=== PATIENT | male | born 1975 | race African-American/Black ===

== ENCOUNTER 2018-11-26 13:05 | Emergency (ER) | payer OTHER ==
[~2018-11-26] VITALS: Ht 167.6 cm; Wt 88.6 kg
[2018-11-26] MEDS ORDERED: MICA40TA PO (13:55)
[2018-11-26 14:32] LABS: BASO % 0.4 % (0.0-1.0); EOS # 0.2 10^3/uL (0.0-0.50); EOS % 2.7 % (0.0-3.0); HEMATOCRIT 44.7 % (42.0-52.0); HEMOGLOBIN 15.5 g/dl (13.5-17.5); LYMPH # 1.4 10^3/uL (1.5-4.5); LYMPH % 19.7 % (24.0-44.0); MEAN CORPUSCULAR HEMOGLOBIN 29.4 pg (27.0-33.0); MEAN CORPUSCULAR HGB CONC 34.7 g/dl (32.0-36.5); MEAN CORPUSCULAR VOLUME 84.8 fl (80.0-96.0); MONO # 0.3 10^3/uL (0.0-0.8); MONO % 4.8 % (0.0-5.0); NEUTROPHILS % 72.3 % (36.0-66.0); PLATELET COUNT, AUTOMATED 183 10^3/uL (150-450); RED BLOOD COUNT 5.27 10^6/uL (4.30-6.10); WHITE BLOOD COUNT 6.9 10^3/uL (4.0-10.0)
[2018-11-26 14:36] LABS: BLOOD UREA NITROGEN 12 MG/DL (7-18); CARBON DIOXIDE LEVEL 23 MEQ/L (21-32); CHLORIDE LEVEL 108 MEQ/L (98-107); CREATININE FOR GFR 1.16 MG/DL (0.70-1.30); GLOMERULAR FILTRATION RATE > 60.0 (>60); GLUCOSE, FASTING 144 MG/DL (70-100); POTASSIUM SERUM 3.7 MEQ/L (3.5-5.1); SODIUM LEVEL 139 MEQ/L (136-145)
[2018-11-26] MEDS ORDERED: ISOVUE-370 76% 100ML VIAL (Q9967) As Ordered ONE (14:42)
--- NOTE | 2018-11-26 16:15 | REP ---
HISTORY: Possible perirectal abscess. CT examination of the pelvis only was obtained after intravenous contrast administration. No oral bowel preparatory contrast or rectal contrast was administered. There are no priors for comparison. The patient states she has had a prior in [place] at [facility], however, due to the request for emergent interpretation of this examination, an emergent report is being made. The pelvic bowel loops are unremarkable. There is no free fluid or free air. There is no pelvic mass or adenopathy. There is no CT evidence of an abscess. Bone window technique throughout the examination shows no abnormality in the osseous structures. IMPRESSION: No abnormality noted. Electronically Signed by John Bailey DO 11/26/2018 04:32 P
[2018-11-26] MEDS ORDERED: COLA100C5 PO (16:22)
[2018-11-26] MEDS ORDERED: ANUS25SU PR (16:22)
[2018-11-26 16:45] VITALS: BP 118/72
--- NOTE | 2018-11-26 20:18 | ECGEPIP ---
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
== END 2018-11-26 17:02 | disposition home or self-care (01) ==
LOC: M ED 13:05 → EDBD 13:05 → M ED 17:02
DX: K60.3 Anal fistula (principal); R55 Syncope and collapse
CPT/HCPCS: 36415; 72193; 80048; 85025; 93005; 99284; Q9967

== ENCOUNTER 2019-01-26 00:25 | Observation (INO) | payer OTHER ==
[~2019-01-26] VITALS: Ht 167.6 cm; Wt 92.1 kg
[~2019-01-26 00:25] MED LIST: ANUS25SU PR; COLA100C5 PO; MICA40TA PO
[2019-01-26 00:59] LABS: BASO % 0.6 % (0.0-1.0); EOS # 0.2 10^3/uL (0.0-0.5); EOS % 3.2 % (0.0-3.0); HEMATOCRIT 42.9 % (42.0-52.0); HEMOGLOBIN 14.9 g/dl (13.5-17.5); LYMPH # 2.5 10^3/uL (1.5-5.0); LYMPH % 39.7 % (24.0-44.0); MEAN CORPUSCULAR HEMOGLOBIN 30.2 pg (27.0-33.0); MEAN CORPUSCULAR HGB CONC 34.7 g/dl (32.0-36.5); MEAN CORPUSCULAR VOLUME 86.8 fl (80.0-96.0); MONO # 0.6 10^3/uL (0.0-0.8); MONO % 8.7 % (0.0-5.0); NEUTROPHILS % 47.6 % (36.0-66.0); PLATELET COUNT, AUTOMATED 202 10^3/uL (150-450); RED BLOOD COUNT 4.94 10^6/uL (4.30-6.10); WHITE BLOOD COUNT 6.3 10^3/uL (4.0-10.0)
[2019-01-26] MEDS ORDERED: LABETALOL HCL 100 MG/20 ML VIAL IV STA (01:07)
--- NOTE | 2019-01-26 01:22 | REPVR ---
PROCEDURE INFORMATION: Exam: CT Head Without Contrast Exam date and time: 01/26/2019 12:35 AM Clinical history: 43 years old, male; Altered mental status/memory loss; Additional info: CVA - nursing interventions must not delay CT TECHNIQUE: Imaging protocol: Computed tomography of the head without contrast. Radiation optimization: All CT scans at this facility use at least one of these dose optimization techniques: automated exposure control; mA and/or kV adjustment per patient size (includes targeted exams where dose is matched to clinical indication); or iterative reconstruction. COMPARISON: No relevant prior studies available. FINDINGS: Brain: Normal. No hemorrhage. Unremarkable white matter. No mass effect. Ventricles: Normal. No ventriculomegaly. Bones/joints: Unremarkable. No acute fracture. Sinuses: Visualized sinuses are unremarkable. No fluid levels. Mastoid air cells: Visualized mastoid air cells are well aerated. Soft tissues: Unremarkable. IMPRESSION: No acute intracranial abnormality. Electronically signed by: Noah Blanco On 01/26/2019 01:21:18 AM
[2019-01-26 01:23] LABS: BLOOD UREA NITROGEN 19 MG/DL (7-18); CALCIUM LEVEL 8.8 MG/DL (8.5-10.1); CARBON DIOXIDE LEVEL 28 MEQ/L (21-32); CHLORIDE LEVEL 107 MEQ/L (98-107); CK-MB VALUE MASS 6.7 NG/ML (<3.6); CPK CREATINE PHOSPHOKINASE 637 U/L (39-308); GLOMERULAR FILTRATION RATE > 60.0 (>60); GLUCOSE, FASTING 100 MG/DL (70-100); INR 1.14; MB/CK RELATIVE INDEX 1.05 (< OR =4); PARTIAL THROMBOPLASTIN TIME 26.5 SECONDS (25.0-38.4); POTASSIUM SERUM 3.9 MEQ/L (3.5-5.1); PROTHROMBIN TIME 14.3 SECONDS (11.8-14.0); SODIUM LEVEL 138 MEQ/L (136-145); TROPONIN I 0.05 NG/ML (< 0.10)
[2019-01-26 01:31] LABS: AMPHETAMINES LEVEL URINE NEGATIVE (NEGATIVE); BARBITURATES URINE NEGATIVE (NEGATIVE); BENZODIAZEPINES URINE NEGATIVE (NEGATIVE); CANNABINOIDS URINE NEGATIVE (NEGATIVE); COCAINE METABOLITE URINE NEGATIVE (NEGATIVE); METHADONE URINE NEGATIVE (NEGATIVE); OPIATES URINE NEGATIVE (NEGATIVE); PHENCYCLIDINE URINE NEGATIVE (NEGATIVE)
[2019-01-26] MEDS ORDERED: ASPIRIN 325 MG TAB PO ONE (02:00)
[2019-01-26] MEDS ORDERED: VITMTA PO (02:23)
[2019-01-26] MEDS ORDERED: MICA40TA2 PO (02:23)
[2019-01-26] MEDS ORDERED: ACETAMINOPHEN TAB 650MG DOSE (2X325MG) PO PRN (02:45)
[2019-01-26] MEDS ORDERED: MAALOX 30 ML SUSP *UDC PO PRN (02:45)
--- NOTE | 2019-01-26 03:05 | HPEPDOC ---
General Date of Admission 01/26/19 Date of Service: Jan 26, 2019 Chief Complaint The patient is a 43-year-old male admitted with a reason for visit of Neuro Symptoms. Source: Patient Exam Limitations: No limitations Timing/Duration: Other Severity: Moderate Associated Symptoms: Other (temporary memory loss) History of Present Illness This is 43 years old male with past medical history of hypertension and hyperlipidemia developed sudden onset of difficulty with memory starting hour a nd a half prior to presentation to triage. As per , patient was confused and dazed looking did not remember the events of night sweats and he was unable to state place and person and time. During my interview, patient is awake, alert, oriented 3, in no apparent distress. Offers no new complaints including headache, dizziness sensory or motor deficit. Were asked by ED to admit patient with global transient amnesia Home Medications Scheduled Multivitamins (Thera M Plus Tablet) 1 Each Tablet, 1 TAB PO DAILY, (Reported) Telmisartan/Hydrochlorothiazid (Micardis Hct 40-12.5 mg Tablet) 1 Each Tablet, 1 TAB PO DAILY, (Reported) Allergies Coded Allergies: No Known Allergies (Unverified , 11/26/18) Past Medical History Medical History Hypertension and hyperlipidemia Surgical History two hernia repairs 1. Inguinal 1. Abdominal Social History * Smoker: former Smoker, quit greater than 1 year Alcohol: Denies Drugs: denies A-FIB/CHADSVASC A-FIB History Current/History of A-Fib/PAF?: No Review of Systems Constitutional: Denies: Chills, Fever, Malaise, Night Sweats, Weakness, Fatigue, Weight Loss, Lethargy, Other Eyes: Denies: Pain, Vision change, Conjunctivae inflammation, Eyelid inflammation, Redness, Other ENT: Denies: Head Aches, Ear Pain, Dysphagia, Sinus Congestion, Post Nasal Drip, Sore Throat, Epistaxis, Other Symptoms Skin: Denies: Rash, Lesions, Jaundice, Bruising, Itching, Dry, Breakdown, Nail Changes, Other Pulmonary: Denies: Dyspnea, Cough, Pleuritic Chest Pain, Other Symptoms Cardiovascular: Denies: Chest Pain, Palpitations, Orthopnea, Paroxysmal Noc. Dyspnea, Edema, Lt Headedness, Other Symptoms Gastrointestinal: Denies: Nausea, Vomiting, Abdominal Pain, Diarrhea, Constipation, Melena, Hematochezia, Other Symptoms Genitourinary: Denies: Dysuria, Frequency, Incontinence, Hematuria, Retention, Other Symptoms Hematologic: Denies: Bruising, Bleeding Excessively, Petecchia, Purpura, Enlarged Lymph Nodes, Other Hematologic Endocrine: Denies: Polydipsia, Polyphagia, Polyuria, Heat Intolerance, Cold Intolerance, Other Endocrine Sx Musculoskeletal: Denies: Neck Pain, Back Pain, Shoulder Pain, Arm Pain, Hand Pain, Leg Pain, Foot Pain, Joint Pain, Muscle Pain, Spasms, Other Symptoms Neurological: Reports: Other Symptoms (, positive amnesia) Psych: Denies: Mood Normal, Anxiety, Depression, Memory Issues, Thoughts of Self Harm, Anger, Thoughts of Harming Other, Other Psych Physical Examination General Exam: Positive: Alert, Cooperative Eye Exam: Positive: Conjunctiva & lids normal ENT Exam: Positive: Atraumatic, Mucous membr. moist/pink Neck Exam: Positive: Supple Chest Exam: Positive: Clear to auscultation, Normal air movement Heart Exam: Positive: Rate Normal, Normal S1, Normal S2 Abdomen Exam: Positive: Normal bowel sounds, Soft Extremity Exam: Positive: Normal pulses Skin Exam: Positive: Nl turgor and temperature Neuro Exam: Positive: Normal Speech, Strength at 5/5 X4 ext, Sensation Intact, Cranial Nerves 3-12 NL Psych Exam: Positive: Mental status NL, Mood NL, Oriented x 3 Vital Signs Vital Signs Date Time Temp Pulse Resp B/P (MAP) Pulse Ox O2 Delivery O2 Flow Rate FiO2 01/26/19 02:21 65 14 159/106 (123) 97 01/26/19 00:25 97.1 Room Air Laboratory Data Labs 24H Laboratory Tests 2 01/26/19 00:49: Immature Granulocyte % (Auto) 0.2, Neutrophils (%) (Auto) 47.6, Lymphocytes (%) (Auto) 39.7, Monocytes (%) (Auto) 8.7H, Eosinophils (%) (Auto) 3.2H, Basophils (%) (Auto) 0.6, Neutrophils # (Auto) 3.0, Lymphocytes # (Auto) 2.5, Monocytes # (Auto) 0.6, Eosinophils # (Auto) 0.2, Basophils # (Auto) 0.0, Nucleated Red Blood Cells % (auto) 0.0, Prothrombin Time 14.3H, Prothromb Time International Ratio 1.14, Activated Partial Thromboplast Time 26.5, Urine Color YELLOW, Urine Appearance CLEAR, Urine pH 6.0, Urine Specific [place] 1.014, Urine Protein NEGATIVE, Urine Glucose (UA) NEGATIVE, Urine Ketones NEGATIVE, Urine Blood NEGATIVE, Urine Nitrite NEGATIVE, Urine Bilirubin NEGATIVE, Urine Urobilinogen 0.2, Urine Leukocyte Esterase NEGATIVE, Urine WBC (Auto) 1, Urine RBC (Auto) 1, Urine Hyaline Casts (Auto) 0, Urine Bacteria (Auto) NEGATIVE, Urine Squamous Epithelial Cells 0, Urine Sperm (Auto) SMALLH, Anion Gap 3L, Glomerular Filtration Rate > 60.0, Calcium Level 8.8, Total Creatine Kinase 637H, Creatine Kinase MB 6.7H, Creatine Kinase MB Relative Index 1.05, Troponin I 0.05, Urine Opiates Screen NEGATIVE, Urine Methadone Screen NEGATIVE, Urine Barbiturates S creen NEGATIVE, Urine Phencyclidine Screen NEGATIVE, Urine Amphetamines Screen NEGATIVE, Urine Benzodiazepines Screen NEGATIVE, Urine Cocaine Metabolite Screen NEGATIVE, Urine Cannabinoids Screen NEGATIVE CBC/BMP Laboratory Tests 01/26/19 00:49 Problems (1) Transient global amnesia Status: Acute Problem Text: Admit patient to PCU hospital monitor CT head of is essentially negative All laboratory work up is completely negative MRI of brain and MRA of carotids has been ordered, not any new to pathology Patient is probably going to require neurology follow-up as an outpatient DC once the workup is complete and negative (2) Hypertensive urgency Status: Acute Problem Text: Patient has a history of hypertension, but he is on no hypert ensive meds will start him on metoprolol 25 mg by mouth twice a day Adjust dose as per response to medication Telemetry monitoring Plan / VTE VTE Prophylaxis Ordered?: Yes AMAN KENDALL MD Jan 26, 2019 03:04
--- NOTE | 2019-01-26 03:29 | REP ---
Clinical: Acute cerebrovascular accident . Comparison: None . Findings: The mediastinum and cardiac silhouette are stable and within normal limits for portable technique. The lung [place] are clear without acute consolidation, effusion, or pneumothorax. Skeletal structures are intact. Impression: No acute cardiopulmonary process appreciated. Electronically Signed by Kian Pimentel MD 01/26/2019 03:21 A
--- NOTE | 2019-01-26 04:14 | REPVR ---
PROCEDURE INFORMATION: Exam: MR Head Without Contrast Exam date and time: 01/26/2019 3:26 AM Clinical history: 43 years old, male; Altered mental status/memory loss; Patient HX: Sudden onset of foggy memory, confusion that comes and goes nki, no priors; Additional info: CVA TECHNIQUE: Imaging protocol: MR of the head without contrast. COMPARISON: CT Head without contrast 01/26/2019 12:53 AM FINDINGS: Ventricles demonstrate normal size and configuration. Major vascular flow voids at the skull base are preserved. No extra-axial fluid collection. No midline shift or intracranial mass effect. Minimal nonspecific white matter gliosis, probable chronic microvascular angiopathy. No pathologic susceptibility. No cerebral edema. No diffusion restriction. Visualized paranasal sinuses and mastoid air cells are clear. IMPRESSION: No acute intracranial abnormality. Electronically signed by: Ortega Steward On 01/26/2019 04:14:17 AM
--- NOTE | 2019-01-26 04:16 | REPVR ---
PROCEDURE INFORMATION: Exam: MR Angiogram Head Without Contrast, Arteries Exam date and time: 01/26/2019 3:26 AM Clinical history: 43 years old, male; Memory loss; Type not specified; Patient HX: Sudden onset of foggy memory, confusion that comes and goes nki, no priors; Additional info: CVA TECHNIQUE: Imaging protocol: MR angiogram head without contrast. Exam focused on the arteries. 3D rendering: MIP reconstructed images were created and reviewed. COMPARISON: CT Head without contrast 01/26/2019 12:53 AM FINDINGS: Right internal carotid artery: Unremarkable. Intracranial segment is patent with no significant stenosis. No aneurysm. Right anterior cerebral artery: Unremarkable. No occlusion or significant stenosis. No aneurysm. Right middle cerebral artery: Unremarkable. No occlusion or significant stenosis. No aneurysm. Right posterior cerebral artery: Unremarkable. No occlusion or significant stenosis. No aneurysm. Right vertebral artery: Unremarkable. No occlusion or significant stenosis. No aneurysm. Left internal carotid artery: Unremarkable. Intracranial segment is patent with no significant stenosis. No aneurysm. Left anterior cerebral artery: Hypoplastic left A1 segment. Left middle cerebral artery: Unremarkable. No occlusion or significant stenosis. No aneurysm. Left posterior cerebral artery: Patent left posterior communicating artery with hypoplastic left P1 segment. Left vertebral artery: Left vertebral artery is dominant. Basilar artery: Unremarkable. No occlusion or significant stenosis. No aneurysm. IMPRESSION: Unremarkable MRA of the [place]. Electronically signed by: Ortega Steward On 01/26/2019 04:16:47 AM
[2019-01-26 04:55] VITALS: BP 160/110
--- NOTE | 2019-01-26 05:36 | ECGEPIP ---
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
[2019-01-26 08:00] VITALS: BP 135/89
[2019-01-26] MEDS: ENOXAPARIN 40 MG/0.4 ML SYRINGE (J1650) SC SCH (08:48)
[2019-01-26] MEDS: METOPROLOL SUCC *XL* 25MG TAB (TopROL *XL*) PO SCH ×2 (08:48→20:52)
[2019-01-26 10:03] LABS: CHOLESTEROL LEVEL 241 MG/DL (<200); CHOLESTEROL RISK RATIO 5.355 (<5); HDL CHOLESTEROL 45 MG/DL (>40); LDL CHOLESTEROL 140 MG/DL (<100); NON-HDL-C 196 MG/DL; TRIGLYCERIDES LEVEL 282 MG/DL (<150)
[2019-01-26 12:00] VITALS: BP 137/80
[2019-01-26 16:00] VITALS: BP 129/79
--- NOTE | 2019-01-26 16:16 | REP ---
Extracranial MRA: 01/26/2019. Indication: Stroke. Comparison: None. Technique: 3-D [id number] imaging of the extracranial circulation was performed including 3-D mrfq-tu-ltxutd contrast enhanced images. 25 ml IV ProHance were administered. Findings: The great vessels originate in the expected anatomic fashion from the aortic arch. There is no hemodynamically significant extracranial ICA stenosis by NASCET criteria. The vertebral arteries are patent throughout. No common carotid artery abnormalities are present. Impression: Unremarkable extracranial MRA. Electronically Signed by Fransisco Puentes DO 01/26/2019 04:07 P
--- NOTE | 2019-01-26 17:15 | IPNPDOC ---
Text Note Date of Service The patient was seen on 01/26/19. NOTE SUBJECTIVE: The patient states he is starting to remember things from prior to coming to the emergency room. He has not had difficulty with remembering anything that has happened since his arrival to the emergency room. The patient has had an episode of transient global amnesia. OBJECTIVE: Please see vital signs below Physical exam: HENT: Neck is supple with no adenopathy or thyromegaly, he has no scleral icterus or injection, has good dentition, oral mucosa is moist Cardiovascular: Regular rate and rhythm with a normal S1 and S2 and no appreciable murmur. Respiratory: Clear to auscultation with good air movement Abdomen: Soft, nontender, nondistended, mild central obesity. Extremities: No peripheral edema or lesions, pedal pulses are palpable. Neuro: No focal neuromotor deficit, patient does not exhibit tremor, patient can recall items such as the access code to his phone, but cannot recall his 's phone number or his house number. He cannot recall names of some friends and family members. He does recall his date. IMAGING: Brain MRI FINDINGS: Ventricles demonstrate normal size and configuration. Major vascular flow voids at the skull base are preserved. No extra-axial fluid collection. No midline shift or intracranial mass effect. Minimal nonspecific white matter gliosis, probable chronic microvascular angiopathy. No pathologic susceptibility. No cerebral edema. No diffusion restriction. Visualized paranasal sinuses and mastoid air cells are clear. IMPRESSION: No acute intracranial abnormality. Electronically signed by: Ortega Steward On 01/26/2019 04:14:17 AM Brain MRA FINDINGS: Right internal carotid artery: Unremarkable. Intracranial segment is patent with no significant stenosis. No aneurysm. Right anterior cerebral artery: Unremarkable. No occlusion or significant stenosis. No aneurysm. Right middle cerebral artery: Unremarkable. No occlusion or significant stenosis. No aneurysm. Right posterior cerebral artery: Unremarkable. No occlusion or significant stenosis. No aneurysm. Right vertebral artery: Unremarkable. No occlusion or significant stenosis. No aneurysm. Left internal carotid artery: Unremarkable. Intracranial segment is patent with no significant stenosis. No aneurysm. Left anterior cerebral artery: Hypoplastic left A1 segment. Left middle cerebral artery: Unremarkable. No occlusion or significant stenosis. No aneurysm. Left posterior cerebral artery: Patent left posterior communicating artery with hypoplastic left P1 segment. Left vertebral artery: Left vertebral artery is dominant. Basilar artery: Unremarkable. No occlusion or significant stenosis. No aneurysm. IMPRESSION: Unremarkable MRA of the [place]. Electronically signed by: Ortega Nichelle On 01/26/2019 04:16:47 AM Carotid artery MRI Findings: The great vessels originate in the expected anatomic fashion from the aortic arch. There is no hemodynamically significant extracranial ICA stenosis by NASCET criteria. The vertebral arteries are patent throughout. No common carotid artery abnormalities are present. Impression: Unremarkable extracranial MRA. Electronically Signed by Fransisco Puentes DO 01/26/2019 04:07 P ASSESSMENT/PLAN: 1. Transient global amnesia. Studies inclusive of head CT, MRI and MRA of brain, MRA of carotids are all negative for infarct, stenosis or occlusion. The patient's symptoms of transient global amnesia are improving. We will continue to assess him overnight. Patient will require neurology follow-up as an outpatient. 2. Hypertensive urgency. Systolic blood pressures had been as high as 207 on presentation. The patient did receive a dose of labetalol in the emergency room. His systolic blood pressures have done a slow downward drift and now range 129 to135. His acute hypertension may have been the etiology of his event. He is currently maintained on Toprol-XL for blood pressure control. VS,Fishbone, I+O VS, Fishbone, I+O Laboratory Tests 01/26/19 00:49 Vital Signs Date Time Temp Pulse Resp B/P (MAP) Pulse Ox O2 Delivery O2 Flow Rate FiO2 01/26/19 16:00 97.3 69 18 129/79 (96) 97 01/26/19 00:25 Room Air I&O- Last 24 Hours up to 6 AM 01/26/19 06:00 Intake Total 300 ml Balance 300 ml NORM DAWKINS MD Jan 26, 2019 17:15
[2019-01-26 20:00] VITALS: BP 128/70
[2019-01-26] MEDS ORDERED: ATORVASTATIN 20 MG TAB PO SCH (21:00)
[2019-01-27] VITALS: BP 133/72
[2019-01-27 04:00] VITALS: BP 133/76
[2019-01-27 07:40] LABS: HEMATOCRIT 43.6 % (42.0-52.0); HEMOGLOBIN 14.9 g/dl (13.5-17.5); MEAN CORPUSCULAR HEMOGLOBIN 30.2 pg (27.0-33.0); MEAN CORPUSCULAR HGB CONC 34.2 g/dl (32.0-36.5); MEAN CORPUSCULAR VOLUME 88.4 fl (80.0-96.0); PLATELET COUNT, AUTOMATED 191 10^3/uL (150-450); RED BLOOD COUNT 4.93 10^6/uL (4.30-6.10); WHITE BLOOD COUNT 4.8 10^3/uL (4.0-10.0)
[2019-01-27 07:52] VITALS: BP 157/93
[2019-01-27 08:01] LABS: ALBUMIN 3.5 GM/DL (3.2-5.2); ALT/SGPT 39 U/L (12-78); BILIRUBIN,TOTAL 0.3 MG/DL (0.2-1.0); BLOOD UREA NITROGEN 17 MG/DL (7-18); CALCIUM LEVEL 8.9 MG/DL (8.5-10.1); CARBON DIOXIDE LEVEL 28 MEQ/L (21-32); CHLORIDE LEVEL 107 MEQ/L (98-107); CREATININE FOR GFR 1.17 MG/DL (0.70-1.30); GLOMERULAR FILTRATION RATE > 60.0 (>60); GLUCOSE, FASTING 98 MG/DL (70-100); POTASSIUM SERUM 3.9 MEQ/L (3.5-5.1); SODIUM LEVEL 140 MEQ/L (136-145); TOTAL PROTEIN 7.1 GM/DL (6.4-8.2)
[2019-01-27 09:36] VITALS: BP 157/93
[2019-01-27] MEDS: METOPROLOL SUCC *XL* 25MG TAB (TopROL *XL*) PO SCH (09:36)
[2019-01-27] MEDS: ENOXAPARIN 40 MG/0.4 ML SYRINGE (J1650) SC SCH (09:36)
[2019-01-27 11:31] VITALS: BP 145/83
[2019-01-27] MEDS ORDERED: METO1TAB32 PO (12:28)
[2019-01-27] MEDS ORDERED: ATOR1TAB21 PO (12:28)
[2019-01-27] MEDS ORDERED: ASPI81TA85 PO (12:28)
== END 2019-01-27 16:30 | disposition home or self-care (01) ==
LOC: M ED 00:25 → M ED INP 00:26 → M PCU 04:43
PROVIDERS: ADMIT Internal Medicine; ATTEND Internal Medicine
DX: G45.4 Transient global amnesia (principal); I16.0 Hypertensive urgency; E78.49 Other hyperlipidemia; I10 Essential (primary) hypertension; Z79.899 Other long term (current) drug therapy; Z87.891 Personal history of nicotine dependence
CPT/HCPCS: 36415; 70450; 70544; 70549; 70551; 71045; 80048; 80053; 80061; 80307; 81001; 82550; 82553; 83735; 84484; 85025; 85027; 85610; 85730; 86850; 86900; 86901; 93005; 93041; 94760; 96372; 96374; 99285; J1650

== ENCOUNTER → 2019-07-09 | Outpatient (REF) | payer OTHER ==
[~2019-07-09] MED LIST changes: +ASPI81TA85 PO; +ATOR1TAB21 PO; +METO1TAB32 PO; +MICA40TA2 PO; +VITMTA PO
== END ==
LOC: M WUC 18:37
PROVIDERS: ATTEND Physician Assistant
DX: J02.9 Acute pharyngitis, unspecified (principal)

== ENCOUNTER 2019-07-13 22:12 | Emergency (ER) | payer OTHER ==
[~2019-07-13] VITALS: Ht 180.3 cm; Wt 91.8 kg
[2019-07-13] MEDS ORDERED: METH4PACK PO (22:46)
[2019-07-13 23:08] LABS: BASO % 0.3 % (0.0-1.0); EOS # 0.1 10^3/uL (0.0-0.5); EOS % 0.5 % (0.0-3.0); HEMATOCRIT 41.9 % (42.0-52.0); LYMPH # 1.9 10^3/uL (1.5-5.0); LYMPH % 16.5 % (24.0-44.0); MEAN CORPUSCULAR HEMOGLOBIN 29.5 pg (27.0-33.0); MEAN CORPUSCULAR HGB CONC 33.4 g/dl (32.0-36.5); MEAN CORPUSCULAR VOLUME 88.2 fl (80.0-96.0); MONO # 1.1 10^3/uL (0.0-0.8); MONO % 9.5 % (0.0-5.0); NEUTROPHILS # 8.3 10^3/uL (1.5-8.5); NEUTROPHILS % 72.9 % (36.0-66.0); PLATELET COUNT, AUTOMATED 237 10^3/uL (150-450); RED BLOOD COUNT 4.75 10^6/uL (4.30-6.10); WHITE BLOOD COUNT 11.4 10^3/uL (4.0-10.0)
[2019-07-13] MEDS ORDERED: ISOVUE-370 76% 100ML VIAL As Ordered ONE (23:18)
[2019-07-13 23:26] LABS: ERYTHROCYTE SEDIMENTATION RATE 26 mm/hr (0-15)
[2019-07-13 23:31] LABS: ALBUMIN 3.4 GM/DL (3.2-5.2); ALT/SGPT 29 U/L (12-78); BILIRUBIN,DIRECT < 0.1 MG/DL (0.0-0.2); BILIRUBIN,TOTAL 0.2 MG/DL (0.2-1.0); C REACTIVE PROTEIN QUANTITATIV 0.99 MG/DL (0.00-0.30); TOTAL PROTEIN 7.2 GM/DL (6.4-8.2)
--- NOTE | 2019-07-13 23:40 | REPVR ---
PROCEDURE INFORMATION: Exam: CT Neck With Contrast Exam date and time: 07/13/2019 10:38 PM Age: 43 years old Clinical indication: Painful swallowing and other: Right side swelling; Additional info: Swelling/? Abscess TECHNIQUE: Imaging protocol: Computed tomography images of the neck with intravenous contrast. Radiation optimization: All CT scans at this facility use at least one of these dose optimization techniques: automated exposure control; mA and/or kV adjustment per patient size (includes targeted exams where dose is matched to clinical indication); or iterative reconstruction. Contrast material: ISO; Contrast volume: 75 ml; Contrast route: AC; COMPARISON: MRA CAROTID W/O FOL WITH 01/26/2019 2:36 PM FINDINGS: Nasopharynx: Unremarkable. Oropharynx: There is enlargement of the right palatine tonsil. There is poorly defined low density involving the right palatine tonsil measuring 2.1 x 1.8 centimetres. Hypopharynx: Unremarkable. Larynx: Unremarkable. Normal epiglottis. Retropharyngeal space: Unremarkable. Submandibular/Parotid glands: Normal. Glands are normal in size. Thyroid: Normal. No enlarged or calcified nodules. Lymph nodes: Unremarkable. No lymphadenopathy. Trachea: Visualized trachea is unremarkable. Lungs: Unremarkable as visualized. Bones/joints: Unremarkable. No acute fracture. Soft tissues: There is partial effacement of the pharyngeal airway. IMPRESSION: 1. Enlargement of the right palatine tonsil with poorly defined low density measuring up to 2.1 centimetres compatible with developing peritonsillar abscess. 2. Associated partial effacement of the pharyngeal airway. Electronically signed by: Ortega Steward On 07/13/2019 23:39:13 PM
[2019-07-13] MEDS ORDERED: dexameTHASONE 20MG/5ML VIAL (J1100 PER 1MG) IV ONE (23:45)
[2019-07-13] MEDS ORDERED: CLINDAMYCIN 300 MG in IV 1 EA IV ONE (23:45)
[2019-07-14] MEDS ORDERED: CLINDAMYCIN 900 MG in IV 1 EA IV ONE (00:15)
[2019-07-14 00:51] VITALS: BP 127/92
[2019-07-14] MEDS ORDERED: PRED20TA PO (01:16)
[2019-07-14] MEDS ORDERED: CLEO300C2 PO (01:16)
[2019-07-15] MEDS ORDERED: CLEO300C2 PO (02:42)
[2019-07-15] MEDS ORDERED: ASPI-161 PO (02:42)
[2019-07-15] MEDS ORDERED: ATOR1TAB21 PO (02:42)
[2019-07-15] MEDS ORDERED: PRED20TA PO (02:44)
[2019-07-15] MEDS ORDERED: IBUP1TAB7 PO (02:44)
[2019-07-15] MEDS ORDERED: ACET-907 PO (02:44)
[2019-07-15] MEDS ORDERED: METO1TAB87 PO (02:44)
== END 2019-07-14 01:42 | disposition home or self-care (01) ==
LOC: M ED 22:12
DX: J36 Peritonsillar abscess (principal); R05 Cough; I10 Essential (primary) hypertension; E78.5 Hyperlipidemia, unspecified; Z79.82 Long term (current) use of aspirin; Z79.899 Other long term (current) drug therapy
CPT/HCPCS: 70491; 80047; 80076; 83605; 85025; 85652; 86140; 86308; 96365; 96375; 99284; G0463; J1100; Q9967

== ENCOUNTER 2019-07-15 00:50 | Inpatient (IN) | payer OTHER ==
[~2019-07-15] VITALS: Ht 167.6 cm; Wt 90.1 kg
[2019-07-15] VITALS (7 sets, daily range): BP systolic 138–195; BP diastolic 80–108
[~2019-07-15 00:50] MED LIST changes: +CLEO300C2 PO; +METH4PACK PO; +PRED20TA PO
[2019-07-15] MEDS ORDERED: ISOVUE-370 76% 100ML VIAL (Q9967) As Ordered ONE (01:02)
[2019-07-15 01:16] LABS: BASO % 0.1 % (0.0-1.0); HEMOGLOBIN 14.5 g/dl (13.5-17.5); LYMPH # 1.8 10^3/uL (1.5-5.0); LYMPH % 11.3 % (24.0-44.0); MEAN CORPUSCULAR HEMOGLOBIN 29.7 pg (27.0-33.0); MEAN CORPUSCULAR HGB CONC 34.5 g/dl (32.0-36.5); MEAN CORPUSCULAR VOLUME 85.9 fl (80.0-96.0); MONO # 1.3 10^3/uL (0.0-0.8); MONO % 8.4 % (0.0-5.0); NEUTROPHILS # 12.3 10^3/uL (1.5-8.5); NEUTROPHILS % 79.8 % (36.0-66.0); PLATELET COUNT, AUTOMATED 270 10^3/uL (150-450); RED BLOOD COUNT 4.89 10^6/uL (4.30-6.10); WHITE BLOOD COUNT 15.4 10^3/uL (4.0-10.0)
--- NOTE | 2019-07-15 01:32 | REPVR ---
PROCEDURE INFORMATION: Exam: CT Neck With Contrast Exam date and time: 07/15/2019 12:55 AM Age: 43 years old Clinical indication: Painful swallowing and throat pain; Patient HX: Known abscess; Additional info: Eval abscess TECHNIQUE: Imaging protocol: Computed tomography images of the neck with intravenous contrast. Radiation optimization: All CT scans at this facility use at least one of these dose optimization techniques: automated exposure control; mA and/or kV adjustment per patient size (includes targeted exams where dose is matched to clinical indication); or iterative reconstruction. Contrast material: ISO; Contrast volume: 75 ml; Contrast route: AC; COMPARISON: CT Neck with contrast 07/13/2019 11:21 PM FINDINGS: Nasopharynx: Unremarkable. Oropharynx: Enlarged right tonsil which is increased in size since the prior study. There is slightly decreased attenuation about the periphery of the right tonsil with irregular central enhancement without a definite ring enhancement or central low attenuation. Findings suggest edema or phlegmon. There is slight induration of the peritonsillar fat. Hypopharynx: Unremarkable. Larynx: The epiglottis is normal. Retropharyngeal space: Unremarkable. Submandibular/Parotid glands: Normal. Glands are normal in size. Thyroid: Normal. No enlarged or calcified nodules. Lymph nodes: Unremarkable. No lymphadenopathy. Trachea: Visualized trachea is unremarkable. Lungs: Unremarkable as visualized. Bones/joints: Unremarkable. No acute fracture. Soft tissues: Within normal limits. IMPRESSION: Increased size of the right tonsil since 07/13/2019. There is slightly decreased attenuation about the periphery with central irregular enhancement which likely reflects edema or phlegmon. No developed abscess is seen. Electronically signed by: Etienne Pagan On 07/15/2019 01:32:16 AM
[2019-07-15 01:45] LABS: BLOOD UREA NITROGEN 21 MG/DL (7-18); CALCIUM LEVEL 9.2 MG/DL (8.5-10.1); CARBON DIOXIDE LEVEL 24 MEQ/L (21-32); CHLORIDE LEVEL 107 MEQ/L (98-107); CREATININE FOR GFR 1.22 MG/DL (0.70-1.30); GLOMERULAR FILTRATION RATE > 60.0 (>60); GLUCOSE, FASTING 146 MG/DL (70-100); POTASSIUM SERUM 3.9 MEQ/L (3.5-5.1); SODIUM LEVEL 136 MEQ/L (136-145)
[2019-07-15] MEDS ORDERED: CLINDAMYCIN 900 MG in IV 1 EA IV ONE (01:45)
[2019-07-15] MEDS ORDERED: dexameTHASONE 20MG/5ML VIAL (J1100 PER 1MG) IV ONE (02:15)
--- NOTE | 2019-07-15 02:31 | HPEPDOC ---
[facility] Medical History & Physical Date of Admission Jul 15, 2019 Date of Service: Jul 15, 2019 Attending Physician: DIAMANTE MARADIAGA MD History and Physical TIME OF SERVICE: 2:35 AM CHIEF COMPLAINT: Difficulty swallowing HISTORY OF PRESENT ILLNESS: This is a 43-year-old male who initially presented to the ER on July 12 with complaints of sore throat that [place] mono, both of which were negative. In our ER he was diagnosed with a peritonsillar abscess, started on clindamycin and prednisone and sent home with recommendations to follow-up with his PCP for possible ENT referral. On July 13 he returned because he had persistent throat pain and difficulties swallowing. He denies having any difficulties breathing. Per discussion with Dr. De La Vega repeat CT showed peritonsillar phlegmon; he ordered clindamycin steroids and IV fluids. 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 HOME MEDICATIONS: Please see below. PHYSICAL EXAMINATION: Vital Signs Date Time Temp Pulse Resp B/P (MAP) Pulse Ox O2 Delivery O2 Flow Rate FiO2 07/15/19 00:57 178/120 (139) 07/15/19 01:02 98.5 66 22 100 Room Air GEN: well-nourished / well developed/ slightly anxious INTEGUMENT: not flushed/ not jaundice HEENT: NCAT / lips acyanotic / Mallampati class III / there is right sided tonsillar swelling CVS: bradycardic w HR 47-63/NMRG/ radial pulses intact LUNGS: lungs are clear to auscultation bilaterally on room air ABDOMEN: Contour ( obese,) MSK/EXTREMITIES: range of motion intact in all 4 extremities NEURO: CN 2-12 are grossly intact / speech is not dysarthric or muffled PSYCH: alert and oriented to person place and time/ able to understand and follow all commands LABORATORY DATA: Immature Granulocyte % (Auto) 0.4, Neutrophils (%) (Auto) 79.8H, Lymphocytes (%) (Auto) 11.3L, Monocytes (%) (Auto) 8.4H, Eosinophils (%) (Auto) 0.0, Basophils (%) (Auto) 0.1, Neutrophils # (Auto) 12.3H, Lymphocytes # (Auto) 1.8, Monocytes # (Auto) 1.3H, Eosinophils # (Auto) 0.0, Basophils # (Auto) 0.0, Nucleated Red Blood Cells % (auto) 0.0, Anion Gap 5L, Glomerular Filtration Rate > 60.0, Calcium Level 9.2 IMAGING: CT of the neck " IMPRESSION: Increased size of the right tonsil since 07/13/2019. There is slightly decreased attenuation about the periphery with central irregular enhancement which likely reflects edema or phlegmon. No developed abscess is seen. " MICROBIOLOGY: 07/15/19 Blood Culture, Received Pending ASSESSMENT: Mr. Jefferson is a 43-year-old with a history of hypertension and dyslipidemia who is admitted for management of right-sided peritonsillar phlegmon. PLAN: 1. Sepsis secondary to peritonsillar phlegmon vs pharyngitis ? SIRS criteria include WBC >12 > RR 20 He has non diabetic hyperglycemia. Plan: admit to medical floor / Sepsis protocol w FSBS Q6H & lactic acid / c/w IV clindamycin & prednisone / lactate ringers @ 150ml/H /f/u blood cx / Acetaminophen PRN for fever & odynophagia / target MAP 65 to 70 / f/u Is and Os with target UOP of at least 0.5 ml/kg/H / target serum glucose 140-180 while acutely ill / the day time team may consider ENT consult 2. Bradycardia likely 2/2 Metoprolol. He denies having chest pain or dyspnea - Plan: will not order additional testing beyond EKG, bc he is asymptomatic 3. Chronic HTN - Plan: metoprolol 4. Dyslipidemia - Plan: atorvastatin / hold ASA 5. Obesity w BMI of 33.3 - Plan: f/u A1C / the pt can f/u w his or her PCP for STOP BANG questionnaire & kinesiotherapist consult / recommend cardiovascular exercise for 40 min 4-5 days a week DVT PROPHYLAXIS: SCDs DISPOSITION: home after less than 2 midnight's stay Home Medications Scheduled Aspirin (Aspirin EC) 81 Mg Tablet.dr, 81 MG PO QHS Atorvastatin Calcium (Atorvastatin Calcium) 20 Mg Tablet, 20 MG PO QHS Clindamycin Hcl (Cleocin HCl) 300 Mg Capsule, 300 MG PO Q8H Metoprolol Tartrate (Metoprolol Tartrate) 25 Mg Tablet, 25 MG PO BID Prednisone (Prednisone) 20 Mg Tablet, 60 MG PO DAILY Scheduled PRN Acetaminophen (Tylenol) 325 Mg Tablet, 650 MG PO Q4H PRN for PAIN Ibuprofen (Ibuprofen) 800 Mg Tablet, 800 MG PO TID PRN for PAIN Allergies Coded Allergies: No Known Allergies (Unverified , 11/26/18) A-FIB/CHADSVASC A-FIB History Current/History of A-Fib/PAF?: No Current PO Anticoag Therapy: DIAMANTE Dey MD Jul 15, 2019 02:31
[2019-07-15] MEDS ORDERED: CLEO300C2 PO (02:42)
[2019-07-15] MEDS ORDERED: ASPI-161 PO (02:42)
[2019-07-15] MEDS ORDERED: ATOR1TAB21 PO (02:42)
[2019-07-15] MEDS ORDERED: PRED20TA PO (02:44)
[2019-07-15] MEDS ORDERED: IBUP1TAB7 PO (02:44)
[2019-07-15] MEDS ORDERED: METO1TAB87 PO (02:44)
[2019-07-15] MEDS ORDERED: ACET-907 PO (02:44)
[2019-07-15] MEDS: LR 1,000 ML IV SCH ×2 (02:45→12:37)
[2019-07-15] MEDS ORDERED: ACETAMINOPHEN TAB 650MG DOSE (2X325MG) PO PRN (04:30)
[2019-07-15 05:40] LABS: HEMATOCRIT 40.7 % (42.0-52.0); HEMOGLOBIN 13.9 g/dl (13.5-17.5); MEAN CORPUSCULAR HEMOGLOBIN 29.7 pg (27.0-33.0); MEAN CORPUSCULAR HGB CONC 34.2 g/dl (32.0-36.5); PLATELET COUNT, AUTOMATED 251 10^3/uL (150-450); RED BLOOD COUNT 4.68 10^6/uL (4.30-6.10); WHITE BLOOD COUNT 15.8 10^3/uL (4.0-10.0)
[2019-07-15] MEDS ORDERED: amLODIPine 10 MG TAB PO ONE (05:45)
[2019-07-15 05:59] LABS: HEMOGLOBIN A1c 5.4 %
[2019-07-15 06:10] LABS: BLOOD UREA NITROGEN 19 MG/DL (7-18); CALCIUM LEVEL 8.7 MG/DL (8.5-10.1); CARBON DIOXIDE LEVEL 27 MEQ/L (21-32); CHLORIDE LEVEL 109 MEQ/L (98-107); CREATININE FOR GFR 1.09 MG/DL (0.70-1.30); GLOMERULAR FILTRATION RATE > 60.0 (>60); GLUCOSE, FASTING 137 MG/DL (70-100); POTASSIUM SERUM 4.1 MEQ/L (3.5-5.1); SODIUM LEVEL 141 MEQ/L (136-145)
[2019-07-15] MEDS: IBUPROFEN 600 MG TAB PO PRN ×2 (10:05→16:29)
[2019-07-15] MEDS: ASPIRIN 81 MG ENTERIC TAB PO SCH (10:05)
[2019-07-15] MEDS: METOPROLOL TART 25 MG TABLET PO SCH ×2 (10:05→20:28)
[2019-07-15] MEDS: CLINDAMYCIN 600 MG in IV 1 EA IV SCH ×2 (10:06→18:08)
--- NOTE | 2019-07-15 10:16 | IPNPDOC ---
Date Seen The patient was seen on 07/15/19. Progress Note SUBJECTIVE: Patient seen and examined at bedside. Patient complains of pain in throat radiating to right ear. Denies any drainage. Swallowing intact but painful per report. Otherwise, denies fever, chills, chest pain, difficulty breathing, nausea, vomiting, abdominal pain, dysuria, leg pain or swelling. OBJECTIVE PHYSICAL EXAMINATION: VITAL SIGNS: Please see below. GENERAL: well developed, well nourished male laying in bed in mild distress, pleasant on interview but clearly in some discomfort HEENT: OP with right sided erythema and edema, no exudate NECK: lymphadenopathy on right side with TTP CARDIOVASCULAR: RRR, normal S1/2, no MRG RESPIRATORY: CTA B/L, no W/R/R ABDOMINAL: Soft, nontender, nondistended EXTREMITIES: No edema, intact distal pulses SKIN: No rash or skin breakdown appreciated NEUROLOGICAL: No focal deficits, normal speech PSYCHOLOGICAL: AAO 3, appropriate LABORATORY DATA, IMAGING STUDIES, MICROBIOLOGY: Please see below. DVT prophylaxis ordered?: SCDs, low risk and laboratory ASSESSMENT AND PLAN: Mr. Jefferson is a 43-year-old with a history of hypertension and dyslipidemia who is admitted for management of right-sided peritonsillar phlegmon. Pt placed on IV clindamycin and ENT consulted for evaluation to see if any intervention is warranted. PROBLEMS: #Sepsis due to Peritonsillar phlegmon -Sepsis protocol w FSBS Q6H & lactic acid -c/w IV clindamycin & prednisone -lactate ringers @ 150ml/H -f/u blood cx -Acetaminophen PRN for fever & odynophagia -target MAP 65 to 70 -f/u Is and Os with target UOP of at least 0.5 ml/kg/H -target serum glucose 140-180 while acutely ill -ENT consult #Bradycardia likely 2/2 Metoprolol. He denies having chest pain or dyspnea - -EKG -cont. to monitor #Chronic HTN -metoprolol -Trend BP #Dyslipidemia -atorvastatin #Obesity w BMI of 32.1 -f/u A1C -the pt can f/u w his or her PCP for STOP BANG questionnaire & automatic machine attendant consult -recommend cardiovascular exercise for 40 min 4-5 days a week -lifestyle modification on discharge DVT PROPHYLAXIS: SCDs DISPOSITION: home pending ENT consult and symptomatic improvement VS, I&O, 24H, Fishbone Vital Signs/I&O Vital Signs Date Time Temp Pulse Resp B/P (MAP) Pulse Ox O2 Delivery O2 Flow Rate FiO2 07/15/19 06:10 179/108 (131) 07/15/19 06:00 98.9 58 17 96 Room Air I&O- Last 24 Hours up to 6 AM 07/15/19 06:00 Intake Total 350 ml Output Total 0 ml Balance 350 ml Laboratory Data 24H LABS Laboratory Tests 2 07/15/19 01:07: Immature Granulocyte % (Auto) 0.4, Neutrophils (%) (Auto) 79.8H, Lymphocytes (%) (Auto) 11.3L, Monocytes (%) (Auto) 8.4H, Eosinophils (%) (Auto) 0.0, Basophils (%) (Auto) 0.1, Neutrophils # (Auto) 12.3H, Lymphocytes # (Auto) 1.8, Monocytes # (Auto) 1.3H, Eosinophils # (Auto) 0.0, Basophils # (Auto) 0.0, Nucleated Red Blood Cells % (auto) 0.0, Anion Gap 5L, Glomerular Filtration Rate > 60.0, Calcium Level 9.2 07/15/19 01:08: Lactic Acid Level 1.9 07/15/19 05:27: Nucleated Red Blood Cells % (auto) 0.0, Anion Gap 5L, Glomerular Filtration Rate > 60.0, Calcium Level 8.7, Estimated Mean Plasma Glucose 108, Hemoglobin A1c 5.4 CBC/BMP Laboratory Tests 07/15/19 01:07 07/15/19 05:27 Microbiology Microbiology 07/15/19 Blood Culture, Received Pending SCOTTIE CORTEZ MD Jul 15, 2019 10:16
--- NOTE | 2019-07-15 11:08 | IPNPDOC ---
Text Note Date of Service The patient was seen on 07/15/19. 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 Bruxism PE somewhat anxious appearing OC/OP Thre right tonsis is NOT shifted and the uvuala though mildly edematous is midline There is an exudate on medial surface of the right tonsil Neck no masses are palpated He has 4 + trigger points on right lateral pterygoid muscle and upper sternomastoid muscle and posteriro capsule of right TMJ CT reviewed IMP 1) Acute right tonsillits and pharyngiits without evidence of abscess responding to meds 2) Ear pain can be both referred pain from pharyngeal inflammation but he clearly has myofascial dysfunciton from a bite disordeer For this I woulld recommend heating pad to right face, soft diet, pain meds and have him get his dental nightguard splint Thank you Gerardo STERN, I+O Gerardo STERN I+O Laboratory Tests 07/15/19 01:07 07/15/19 05:27 Vital Signs Date Time Temp Pulse Resp B/P (MAP) Pulse Ox O2 Delivery O2 Flow Rate FiO2 07/15/19 10:05 166/57 07/15/19 06:00 98.9 58 17 96 Room Air I&O- Last 24 Hours up to 6 AM 07/15/19 06:00 Intake Total 350 ml Output Total 0 ml Balance 350 ml ERIC ARREAGA MD Jul 15, 2019 11:08
--- NOTE | 2019-07-15 12:39 | ECGEPIP ---
[facility] Test Date: 2019-07-15 Pat Name: DOC MATTA Department: Room: 0102 Gender: Male Certifier: COR[place] : 1975 Requested By: DIAMANTE MARADIAGA Order Number: [id number] Reading MD: Reginald Casas Measurements Intervals [place] Rate: 67 P: 41 SD: 176 QRS: -13 QRSD: 87 T: 20 QT: 381 QTc: 404 Interpretive Statements Normal sinus rhythm with sinus arrhythmia Leftward axis Left atrial enlargement Probable left ventricular hypertrophy Electronically Signed on 07-15-2019 12:38:26 EDT by Reginald Casas
[2019-07-15] MEDS ORDERED: ATORVASTATIN 20 MG TAB PO SCH ×2 (21:00)
[2019-07-16] MEDS: CLINDAMYCIN 600 MG in IV 1 EA IV SCH ×2 (01:33→08:58)
[2019-07-16] MEDS: IBUPROFEN 600 MG TAB PO PRN (01:33)
[2019-07-16] MEDS: LR 1,000 ML IV SCH (01:33)
[2019-07-16 06:00] VITALS: BP 158/82
[2019-07-16 06:36] LABS: HEMATOCRIT 41.1 % (42.0-52.0); HEMOGLOBIN 13.6 g/dl (13.5-17.5); MEAN CORPUSCULAR HEMOGLOBIN 29.3 pg (27.0-33.0); MEAN CORPUSCULAR HGB CONC 33.1 g/dl (32.0-36.5); MEAN CORPUSCULAR VOLUME 88.6 fl (80.0-96.0); PLATELET COUNT, AUTOMATED 241 10^3/uL (150-450); RED BLOOD COUNT 4.64 10^6/uL (4.30-6.10); WHITE BLOOD COUNT 12.5 10^3/uL (4.0-10.0)
[2019-07-16] MEDS: METOPROLOL TART 25 MG TABLET PO SCH (08:58)
[2019-07-16] MEDS: ASPIRIN 81 MG ENTERIC TAB PO SCH (08:58)
[2019-07-16 08:59] VITALS: BP 158/82
[2019-07-16] MEDS ORDERED: lisinopriL 10 MG TAB PO SCH (09:00)
[2019-07-16] MEDS ORDERED: predniSONE 20 MG TAB PO SCH (09:00)
[2019-07-16] MEDS ORDERED: CLEO150C PO (13:38)
--- NOTE | 2019-07-16 13:51 | DS.PDOC ---
Discharge Summary General Date of Admission Jul 15, 2019 at 02:36 Date of Discharge 07/16/19 Attending Physician: SCOTTIE CORTEZ MD Specialist/Consultants Involve: ERIC ARREAGA MD Discharge Summary PROCEDURES PERFORMED DURING STAY: None ADMITTING DIAGNOSES: 1. Peritonsillar phlegmon and tonsillitis DISCHARGE DIAGNOSES: 1. Peritonsillar phlegmon and tonsillitis 2. HTN 3. HLD COMPLICATIONS/CHIEF COMPLAINT: Cellulitis Of Tonsil. HISTORY OF PRESENT ILLNESS: This is a 43-year-old male who initially presented to the ER on July 12 with complaints of sore throat that [place], both of which were negative. In our ER he was diagnosed with a peritonsillar abscess, started on clindamycin and prednisone and sent home with recommendations to follow-up with his PCP for possible ENT referral. On July 13 he returned because he had persistent throat pain and difficulties swallowing. He denies having any difficulties breathing. Per discussion with Dr. De La Vega repeat CT showed peritonsillar phlegmon; he ordered clindamycin steroids and IV fluids. HOSPITAL COURSE: Patient treated with IV clindamycin. ENT consulted who recommended antibiotics and steroids. No intervention warranted. Patient improved rapidly on IV antibiotics with improved swallowing. White count also downtrending. Patient seen and examined on day of discharge and patient feeling much better. Denies any fevers, chills, lightheadedness, dizziness, chest pain, difficulty breathing, nausea, vomiting, abdominal pain, dysuria, diarrhea, leg pain or swelling. Patient says sore throat has greatly improved. Plan for patient to be discharged on oral antibiotics and short course of steroids and to follow-up with PMD for resolution. Plan discussed with patient and he is in agreement. DISCHARGE MEDICATIONS: Please see below. ALLERGIES: Please see below. PHYSICAL EXAMINATION ON DISCHARGE: VITAL SIGNS: Please see below. GENERAL: well developed, well nourished male laying in bed in no acute distress HEENT: OP with right sided mild erythema and mild edema (improved from day prior), no exudate NECK: lymphadenopathy on right side with TTP (improved) CARDIOVASCULAR: RRR, normal S1/2, no MRG RESPIRATORY: CTA B/L, no W/R/R ABDOMINAL: Soft, nontender, nondistended EXTREMITIES: No edema, intact distal pulses SKIN: No rash or skin breakdown appreciated NEUROLOGICAL: No focal deficits, normal speech PSYCHOLOGICAL: AAO 3, appropriate LABORATORY DATA: Please see below. IMAGING: CT neck: Increased size of the right tonsil since 07/13/2019. There is slightly decreased attenuation about the periphery with central irregular enhancement which likely reflects edema or phlegmon. No developed abscess is seen. PROGNOSIS: good ACTIVITY: As tolerated. DIET: cardiac DISCHARGE PLAN: Plan to be discharged home on steroids and abx to finish a 14 day course. DISCHARGE INSTRUCTIONS: 1. Please follow up with your PMD within 1 week to assess for resolution of symptoms ITEMS TO FOLLOWUP ON ON OUTPATIENT: 1. Please assess for resolution of symptoms DISCHARGE CONDITION: Stable TIME SPENT ON DISCHARGE: 31 minutes. Vital Signs/I&Os Vital Signs Date Time Temp Pulse Resp B/P (MAP) Pulse Ox O2 Delivery O2 Flow Rate FiO2 07/16/19 08:59 158/82 07/16/19 08:58 49 07/16/19 06:00 97.2 20 98 Room Air I&O- Last 24 Hours up to 6 AM 07/16/19 06:00 Intake Total 1200 ml Output Total 0 ml Balance 1200 ml Laboratory Data Labs 24H Laboratory Tests 2 07/15/19 14:09: Bedside Glucose (Misc Panel) 133H 07/15/19 20:29: Bedside Glucose (Misc Panel) 110H 07/16/19 00:21: Bedside Glucose (Misc Panel) 104 07/16/19 06:14: Nucleated Red Blood Cells % (auto) 0.0 07/16/19 06:24: Bedside Glucose (Misc Panel) 87 07/16/19 11:53: Bedside Glucose (Misc Panel) 120H CBC/BMP Laboratory Tests 07/16/19 06:14 FSBS Laboratory Tests Test 07/15/19 14:09 07/15/19 20:29 07/16/19 00:21 07/16/19 06:24 Range/Units Bedside Glucose (Misc Panel) 133 110 104 87 70-105 MG/DL Test 07/16/19 11:53 Range/Units Bedside Glucose (Misc Panel) 120 70-105 MG/DL Microbiology Microbiology 07/15/19 Blood Culture - Preliminary, Resulted No growth after 24 hours . All specim... Discharge Medications Scheduled Aspirin (Aspirin EC) 81 Mg Tablet.dr, 81 MG PO QHS, (Reported) Atorvastatin Calcium (Atorvastatin Calcium) 20 Mg Tablet, 20 MG PO QHS, (Reported) Clindamycin Hcl (Cleocin HCl) 300 Mg Capsule, 300 MG PO Q8H, (Reported) Clindamycin Hcl (Cleocin HCl) 150 Mg Capsule, 450 MG PO QID Metoprolol Tartrate (Metoprolol Tartrate) 25 Mg Tablet, 25 MG PO BID, (Reported) Prednisone (Prednisone) 20 Mg Tablet, 60 MG PO DAILY, (Reported) Scheduled PRN Acetaminophen (Tylenol) 325 Mg Tablet, 650 MG PO Q4H PRN for PAIN, (Reported) Ibuprofen (Ibuprofen) 800 Mg Tablet, 800 MG PO TID PRN for PAIN, (Reported) Allergies Coded Allergies: No Known Allergies (Unverified , 11/26/18) SCOTTIE CORTEZ MD Jul 16, 2019 13:51
[2019-07-16 14:00] VITALS: BP 130/74
== END 2019-07-16 15:30 | disposition home or self-care (01) | DRG 872 ==
LOC: M ED 00:50 → M ED INP 00:51 → OBSVTOIN 02:36 → INTOOBSV 02:36 → ENRESERVDT 03:26 → ENRESERVTM 03:26 → M MS5PR 03:51
PROVIDERS: ADMIT Internal Medicine; ATTEND Internal Medicine
DX: A41.9 Sepsis, unspecified organism (principal); J36 Peritonsillar abscess; I10 Essential (primary) hypertension; Z79.82 Long term (current) use of aspirin; Z79.899 Other long term (current) drug therapy; E78.5 Hyperlipidemia, unspecified; E66.9 Obesity, unspecified; Z68.33 Body mass index [BMI] 33.0-33.9, adult

== ENCOUNTER 2021-01-28 07:24 | Emergency (ER) | payer OTHER ==
[~2021-01-28 07:24] MED LIST changes: +ACET-907 PO; +ASPI-161 PO; -ASPI81TA85 PO; +ASPI81TA86 PO; +CLEO150C PO; +IBUP1TAB7 PO; +METO1TAB87 PO
--- OUTSIDE RECORDS SUMMARY | 2021-01-28 07:30 | CCD ---
Author Author [facility] Address Unknown Phone Unavailable Support Name Relationship Address Phone [facility] Next Of Kin [address] [place] [address] Unavailable JULY MATTA Next [place] [id number] [place] [address] Re-disclosure Warning The records that you are about to access may contain information from federally-assisted alcohol or drug abuse programs. If such information is present, then the following federally mandated warning applies: This information has been disclosed to you from records protected by federal confidentiality rules (42 CFR part 2). The federal rules prohibit you from making any further disclosure of this information unless further disclosure is expressly permitted by the written consent of the person to whom it pertains or as otherwise permitted by 42 CFR part 2. A general authorization for the release of medical or other information is NOT sufficient for this purpose. The Federal rules restrict any use of the information to criminally investigate or prosecute any alcohol or drug abuse patient.The records that you are about to access may contain highly sensitive health information, the redisclosure of which is protected by Article 27-F of the [facility] Public Health law. If you continue you may have access to information: Regarding HIV / AIDS; Provided by facilities licensed or operated by the [facility] Office of Mental Health; or Provided by the [facility] Office for People With Developmental Disabilities. If such information is present, then the following [facility] mandated warning applies: This information has been disclosed to you from confidential records which are protected by state law. State law prohibits you from making any further disclosure of this information without the specific written consent of the person to whom it pertains, or as otherwise permitted by law. Any unauthorized further disclosure in violation of state law may result in a fine or group home sentence or both. A general authorization for the release of medical or other information is NOT sufficient authorization for further disc losure. Medications No Information Insurance Providers Payer name Policy type / Coverage type Policy ID Covered constitution party ID Covered constitution party's relationship to allen Policy Allen Plan Information [facility] ACTIVE DUTY [id number] Problems, Conditions, and Diagnoses No Information Surgeries/Procedures No Information Results No Information Social History No Information
[2021-01-28] MEDS ORDERED: BUPR150T12 (07:33)
[2021-01-28] MEDS ORDERED: LEXA1TAB2 (07:33)
[2021-01-28] MEDS ORDERED: dexameTHASONE 20MG/5ML VIAL (J1100 PER 1MG) IV ONE (09:10)
[2021-01-28] MEDS ORDERED: NS 1,000 ML IV ONE (09:10)
[2021-01-28] MEDS ORDERED: KETOROLAC 30 MG/ML 1ML VIAL IV ONE (09:10)
[2021-01-28] MEDS ORDERED: AMPICILLIN SOD/SULBACTAM SOD 3 GM in D5W MINI-BAG PLUS 100 ML IV ONE (09:10)
--- OUTSIDE RECORDS SUMMARY | 2021-01-28 09:37 | CCD ---
Author Author [facility] Address Unknown Phone Unavailable Support Name Relationship Address Phone [facility] Next Of Kin [address] [place] [address] Unavailable JULY MATTA Next [place] [id number] [place] [address] Re-disclosure Warning The records that you are [...] is protected by Article 27-F of the [facility] Public Health law. If you continue you may have access to information: Regarding HIV / AIDS; Provided by facilities licensed or operated by the [facility] Office of Mental Health; or Provided by the [facility] Office for People With Developmental Disabilities. If such information is present, then the following [facility] mandated warning applies: This information has [...] law may result in a fine or [place] health [place] sentence or both. A general authorization for the release of medical or other information is NOT sufficient authorization for further disc losure. Medications No Information Insurance Providers Payer name Policy type / Coverage type Policy ID Covered republican ID Covered republican's relationship to allen Policy Allen Plan Information [facility] ACTIVE DUTY [id number] Problems, Conditions, and Diagnoses No Information Surgeries/Procedures No Information Results No Information Social History No Information
[2021-01-28 09:45] LABS: BASO % 0.3 % (0.0-1.0); EOS # 0.1 10^3/uL (0.0-0.5); EOS % 1.3 % (0.0-3.0); HEMATOCRIT 43.8 % (42.0-52.0); HEMOGLOBIN 15.2 g/dl (13.5-17.5); LYMPH # 2.1 10^3/uL (1.5-5.0); LYMPH % 23.2 % (24.0-44.0); MEAN CORPUSCULAR HEMOGLOBIN 29.9 pg (27.0-33.0); MEAN CORPUSCULAR HGB CONC 34.7 g/dl (32.0-36.5); MEAN CORPUSCULAR VOLUME 86.1 fl (80.0-96.0); MONO # 0.6 10^3/uL (0.0-0.8); MONO % 6.8 % (2.0-8.0); NEUTROPHILS # 6.1 10^3/uL (1.5-8.5); NEUTROPHILS % 68.1 % (36.0-66.0); PLATELET COUNT, AUTOMATED 197 10^3/uL (150-450); RED BLOOD COUNT 5.09 10^6/uL (4.30-6.10)
[2021-01-28 10:13] LABS: BLOOD UREA NITROGEN 12 MG/DL (7-18); C REACTIVE PROTEIN QUANTITATIV 0.36 MG/DL (0.00-0.30); CALCIUM LEVEL 9.1 MG/DL (8.5-10.1); CARBON DIOXIDE LEVEL 26 MEQ/L (21-32); CHLORIDE LEVEL 107 MEQ/L (98-107); CREATININE FOR GFR 1.08 MG/DL (0.70-1.30); ERYTHROCYTE SEDIMENTATION RATE 5 mm/hr (0-15); GLOMERULAR FILTRATION RATE > 60.0 (>60); GLUCOSE, FASTING 79 MG/DL (70-100); SODIUM LEVEL 136 MEQ/L (136-145)
[2021-01-28] MEDS ORDERED: ISOVUE-370 76% 100ML VIAL As Ordered ONE (10:23)
--- NOTE | 2021-01-28 11:23 | REPVR ---
PROCEDURE INFORMATION: Exam: CT Neck With Contrast Exam date and time: 01/28/2021 9:10 AM Age: 45 years old Clinical indication: Mass, lump, or swelling in neck; Bilateral; Additional info: Likely peritonsillar abscess, evel for deep tissue abscess TECHNIQUE: Imaging protocol: Computed tomography images of the neck with contrast. Radiation optimization: All CT scans at this facility use at least one of these dose optimization techniques: automated exposure control; mA and/or kV adjustment per patient size (includes targeted exams where dose is matched to clinical indication); or iterative reconstruction. Contrast material: ISOVUE 370; Contrast volume: 75 ml; Contrast route: INTRAVENOUS (IV); COMPARISON: CT Neck with contrast 07/15/2019 1:10 AM FINDINGS: Limitations: Evaluation of the oral cavity and oropharynx is limited by spray artifact from dental amalgam. Nasopharynx: Unremarkable. Oropharynx: The palatine tonsils appear enlarged. No definite tonsillar phlegmon or abscess is seen. Minimal edema/inflammation may be present in the right parapharyngeal fat. Hypopharynx: Unremarkable. Larynx: Unremarkable. Normal epiglottis. Retropharyngeal space: Unremarkable. Submandibular/Parotid glands: Normal. Glands are normal in size. Thyroid: Normal. No enlarged or calcified nodules. Lymph nodes: Multiple small nonspecific bilateral cervical chain lymph nodes are present. These do not meet size criteria for pathology. Trachea: Visualized trachea is unremarkable. Lungs: Unremarkable as visualized. Bones/joints: Unremarkable. No acute fracture. Soft tissues: Unremarkable. No significant soft tissue swelling. IMPRESSION: 1. Evaluation of the oral cavity and oropharynx is limited by spray artifact from dental amalgam. 2. The palatine tonsils appear enlarged. No definite tonsillar phlegmon or abscess is seen. Minimal edema/inflammation may be present in the right parapharyngeal fat. Electronically signed by: Christopher Roberts On 01/28/2021 11:22:44 AM
[2021-01-28] MEDS ORDERED: AUGM875T28 PO (11:28)
[2021-01-28] MEDS ORDERED: MEDR4PAK PO (11:28)
[2021-01-28 11:54] VITALS: BP 148/78
== END 2021-01-28 11:55 | disposition home or self-care (01) ==
LOC: M ED 07:24
DX: J02.9 Acute pharyngitis, unspecified (principal); I10 Essential (primary) hypertension; E78.5 Hyperlipidemia, unspecified; F41.9 Anxiety disorder, unspecified; Z79.899 Other long term (current) drug therapy
CPT/HCPCS: 36415; 70491; 80048; 85025; 85652; 86140; 96365; 96375; 99284; J1100; J1885; Q9967

== ENCOUNTER 2021-04-23 07:08 | Day surgery (SDC) | payer OTHER ==
[~2021-04-23] VITALS: Ht 167.6 cm; Wt 97.5 kg
[~2021-04-23 07:08] MED LIST changes: +AUGM875T28 PO; +BUPR150T12 PO; +HYDR-643 PO; +LEXA1TAB2 PO; +LIDOCAINE 2% 100MG/5ML SDV (FOR ANES.) As Ordered ONE; +LR 1,000 ML IV ONE; +MEDR4PAK PO; +MIDAZOLAM INJ 2MG/2ML VIAL (J2250 PER 1MG) As Ordered ONE; +ONDANSETRON 4MG/2ML VIAL As Ordered ONE; +ROCURONIUM BROMIDE 50 MG/5 ML VIAL As Ordered ONE; +SUGAMMADEX SODIUM 500 MG/5 ML VIAL (BRIDION) As Ordered ONE; +dexameTHASONE 4 MG/ML 1ML VIAL (J1100 PER 1MG) As Ordered ONE; +dexameTHASONE 4 MG/ML 1ML VIAL (J1100 PER 1MG) IV ONE; +fentaNYL 100 MCG/2 ML INJECTION (J3010) As Ordered ONE; +propofoL 200 MG/20 ML VIAL As Ordered ONE
[2021-04-23] MEDS ORDERED: MIRT1TAB (07:24)
[2021-04-23] MEDS ORDERED: OXYMETAZOLINE 0.05% NASAL SPRAY (AFRIN) As Ordered ONE (07:52)
[2021-04-23] MEDS ORDERED: ACETAMINOPHEN 1000MG 100ML IV BTL (OFIRMEV) (J0131 PER 10MG) As Ordered ONE ×2 (08:48→11:14)
[2021-04-23] MEDS ORDERED: LIDOCAINE 2% 100MG/5ML SDV (FOR ANES.) As Ordered ONE (09:00)
[2021-04-23] MEDS ORDERED: dexameTHASONE 4 MG/ML 1ML VIAL (J1100 PER 1MG) As Ordered ONE (09:00)
[2021-04-23] MEDS ORDERED: fentaNYL 100 MCG/2 ML INJECTION (J3010) As Ordered ONE (09:13)
[2021-04-23] MEDS ORDERED: HYDROMORPHONE HCL 0.5 MG/ 0.5 ML SYRINGE (J1170 PER 1) IV PRN (11:05)
[2021-04-23] MEDS ORDERED: oxyCODONE 5MG TAB PO PRN (11:05)
[2021-04-23] MEDS ORDERED: fentaNYL 100 MCG/2 ML INJECTION (J3010) IV PRN (11:05)
[2021-04-23] MEDS ORDERED: LR 1,000 ML IV SCH ×2 (11:05)
[2021-04-23] MEDS ORDERED: ONDANSETRON 4MG/2ML VIAL IV PRN (11:05)
[2021-04-23] MEDS ORDERED: PHENYLephrine 500MCG 5ML (100MCG/ML) SYRINGE As Ordered ONE (11:08)
[2021-04-23] MEDS ORDERED: SUCCINYLCHOLINE 100 MG/5 ML SYRINGE (J0330) As Ordered ONE (11:14)
[2021-04-23 11:23] VITALS: BP 130/85
== END 2021-04-23 16:15 | disposition home or self-care (01) ==
LOC: M SDC 07:08
PROVIDERS: ATTEND Otolaryngology
DX: J35.1 Hypertrophy of tonsils (principal); I10 Essential (primary) hypertension; E78.5 Hyperlipidemia, unspecified; F41.9 Anxiety disorder, unspecified; G47.30 Sleep apnea, unspecified; Z79.82 Long term (current) use of aspirin; Z79.899 Other long term (current) drug therapy
CPT/HCPCS: 42826; 88302; 93005; J0131; J0330; J1100; J2250; J2370; J2405; J3010